=== PATIENT | male | born 1995 | race African-American/Black ===

== ENCOUNTER 2017-04-09 23:15 | Emergency (ER) | payer SELFPAY ==
[~2017-04-09 23:15] MED LIST: VENTAER INH
[2017-04-09 23:17] VITALS: BP 134/89; PULSE 64; RESP 16; TEMP 98.9; O2SAT 100
[2017-04-10] MEDS ORDERED: KALETRA200 PO ×2 (01:57→01:58)
[2017-04-10] MEDS ORDERED: LAMI1TAB7 PO (01:57)
[2017-04-10] MEDS ORDERED: ZIDO100C4 PO (01:57)
[2017-04-10] MEDS ORDERED: ZOFR4TAB PO (02:00)
== END 2017-04-10 00:34 | disposition left against medical advice (07) ==
LOC: NED 23:15
DX: T14.8 Other injury of unspecified body region (principal); W46.0XXA Contact with hypodermic needle, initial encounter
CPT/HCPCS: 99281

== ENCOUNTER 2017-04-09 23:47 | Emergency (ER) | payer MEDICAID, OTHER ==
[~2017-04-09] VITALS: Ht 182.9 cm; Wt 80.7 kg
[2017-04-10 00:08] VITALS: BP 118/79; PULSE 66; RESP 18; TEMP 98.2; O2SAT 100
[2017-04-10] MEDS ORDERED: TETANUS/DIPHTHERIA TOXOID ADULT 0.5 ML VIAL IM ONE (00:30)
[2017-04-10] MEDS ORDERED: SODIUM CHLORIDE 0.9% FLUSH 10 ML FLUSH IV FLUSH PRN (00:30)
[2017-04-10] MEDS ORDERED: LOPINAVIR/RITONAVIR 200 MG/50 MG TAB PO ONE (00:30)
[2017-04-10] MEDS ORDERED: ZIDOVUDINE 100 MG CAP PO ONE (00:30)
[2017-04-10 01:09] LABS: AUTOMATED NEUTROPHIL # 2.3 TH/MM3 (1.8-7.7); BASOPHIL % 0.7 % (0.0-2.0); EOSINOPHIL # 0.1 TH/MM3 (0-0.4); EOSINOPHIL % 2.7 % (0.0-4.0); HEMATOCRIT 42.5 % (39.0-51.0); HEMO FLAGS DIFF FINAL; LYMPH % 46.6 % (9.0-44.0); LYMPHOCYTE # 2.4 TH/MM3 (1.0-4.8); MEAN CELL VOLUME 85.7 FL (80.0-100.0); MEAN CORPUSCULAR HEMOGLOBIN 28.8 PG (27.0-34.0); MEAN CORPUSCULAR HGB CONC 33.6 % (32.0-36.0); MONO % 5.8 % (0.0-8.0); NEUT % 44.2 % (16.0-70.0); PLATELET COUNT 239 TH/MM3 (150-450); RED BLOOD COUNT 4.96 MIL/MM3 (4.50-5.90); RED CELL DISTRIBUTION WIDTH 13.1 % (11.6-17.2); WHITE BLOOD COUNT 5.1 TH/MM3 (4.0-11.0)
[2017-04-10 01:16] LABS: CHLORIDE 107 MEQ/L (98-107); POTASSIUM 3.7 MEQ/L (3.5-5.1); SODIUM (NA) 143 MEQ/L (136-145)
[2017-04-10 01:19] LABS: ANION GAP 6 MEQ/L (5-15); BICARBONATE 29.7 MEQ/L (21.0-32.0)
[2017-04-10 01:20] LABS: AMYLASE 63 U/L (25-115); BLOOD UREA NITROGEN 11 MG/DL (7-18)
--- NOTE | 2017-04-10 01:20 | PD ---
HPI Chief Complaint: Exposure to Blood/Body Fluids Time Seen by Provider: 00:09 Travel History International Travel<30 days: No Contact w/Intl Traveler<30days: No Traveled to known affect area: No History of Present Illness HPI Patient is a 21-year-old male presents to the emergency Department with right hand pain. Patient states he was at his job at [employer] where he works and was going to clean the bathroom and when he reached in to the trash can he was struck by a uncapped needle on a syringe with visible blood. Patient states is on his right index finger. States that he is unsure when the needle came from another of his coworkers claimed it. Patient is initially unsure if his hepatitis vaccination status however he called his mom states that he has not had it. Incident happened just prior to arrival. Otherwise he feels well, no complaints, denies any chest pain shortness breath abdominal pain nausea vomiting diarrhea. PFSH Past Medical History Medical History: Denies Significant Hx Developmental Delay: No Diminished Hearing: No Immunizations Current: Yes Tetanus Vaccination: < 5 Years Influenza Vaccination: No Past Surgical History Surgical History: No Previous Surgery Social History Alcohol Use: No Tobacco Use: No Substance Use: Yes (OCC MARIJUANA) Allergies-Medications (Allergen,Severity, Reaction): Coded Allergies: No Known Allergies (Verified , 04/10/17) Reported Meds & Prescriptions Reported Meds & Active Scripts Active Zofran (Ondansetron HCl) 4 Mg Tab 4 Mg PO Q6HR PRN Kaletra (Lopinavir/Ritonavir) 200-50 Mg Tab 2 Tab PO Q12HR Zidovudine 100 Mg Cap 300 Mg PO Q12HR 28 Days Lamivudine 150 Mg Tab 150 Mg PO BID 28 Days Ventolin Hfa (Albuterol Sulfate) 18 Gm Aero 2 Puff INH Q4H PRN * SHAKE WELL BEFORE USE * Review of Systems Except as stated in HPI: all other systems reviewed are Neg Physical Exam Narrative GENERAL: Well-developed well-nourished no apparent distress SKIN: There is a very small wound of the right finger however he does appear to have breech the dermis, no bleeding no abscess, full nontender range of motion. No signs of bacterial infection. HEAD: Atraumatic. Normocephalic. EYES: Pupils equal and round. No scleral icterus. No injection or drainage. ENT: No nasal bleeding or discharge. Mucous membranes pink and moist. NECK: Trachea midline. No JVD. CARDIOVASCULAR: Regular rate and rhythm. No murmur appreciated. RESPIRATORY: No accessory muscle use. Clear to auscultation. Breath sounds equal bilaterally. GASTROINTESTINAL: Abdomen soft, non-tender, nondistended. Hepatic and splenic margins not palpable. MUSCULOSKELETAL: No obvious deformities. No clubbing. No cyanosis. No edema. NEUROLOGICAL: Awake and alert. No obvious cranial nerve deficits. Motor grossly within normal limits. Normal speech. PSYCHIATRIC: Appropriate mood and affect; insight and judgment normal. Data Data Last Documented VS Vital Signs Date Time Temp Pulse Resp B/P Pulse Ox O2 Delivery O2 Flow Rate FiO2 04/10/17 03:50 76 20 110/74 100 04/10/17 00:08 98.2 Orders Tetanus/Diphtheria Tox Adult (Tetanus/Di (04/10/17 00:30) Complete Blood Count With Diff (04/10/17 00:23) Comprehensive Metabolic Panel (04/10/17 00:23) Iv Access Insert/Monitor (04/10/17 00:23) Oximetry (04/10/17 00:23) Sodium Chloride 0.9% Flush (Ns Flush) (04/10/17 00:30) Amylase (04/10/17 00:23) Lamivudine (Epivir) (04/10/17 00:30) Zidovudine (Retrovir) (04/10/17 00:30) Lopinavir-Ritonavir 200-50 Mg (Kaletra 2 (04/10/17 00:30) Hepatitis B Vaccine (04/10/17 00:47) Hepatitis B Vaccine Ped Inj (Recombivax (04/10/17 02:30) Labs Laboratory Tests Test 04/10/17 00:40 White Blood Count 5.1 TH/MM3 Red Blood Count 4.96 MIL/MM3 Hemoglobin 14.3 GM/DL Hematocrit 42.5 % Mean Corpuscular Volume 85.7 FL Mean Corpuscular Hemoglobin 28.8 PG Mean Corpuscular Hemoglobin 33.6 % Concent Red Cell Distribution Width 13.1 % Platelet Count 239 TH/MM3 Mean Platelet Volume 7.3 FL Neutrophils (%) (Auto) 44.2 % Lymphocytes (%) (Auto) 46.6 % Monocytes (%) (Auto) 5.8 % Eosinophils (%) (Auto) 2.7 % Basophils (%) (Auto) 0.7 % Neutrophils # (Auto) 2.3 TH/MM3 Lymphocytes # (Auto) 2.4 TH/MM3 Monocytes # (Auto) 0.3 TH/MM3 Eosinophils # (Auto) 0.1 TH/MM3 Basophils # (Auto) 0.0 TH/MM3 CBC Comment DIFF FINAL Differential Comment Sodium Level 143 MEQ/L Potassium Level 3.7 MEQ/L Chloride Level 107 MEQ/L Carbon Dioxide Level 29.7 MEQ/L Anion Gap 6 MEQ/L Blood Urea Nitrogen 11 MG/DL Creatinine 1.20 MG/DL Estimat Glomerular Filtration 94 ML/MIN Rate Random Glucose 85 MG/DL Calcium Level 9.0 MG/DL Total Bilirubin 1.3 MG/DL Aspartate Amino Transf 23 U/L (AST/SGOT) Alanine Aminotransferase 32 U/L (ALT/SGPT) Alkaline Phosphatase 56 U/L Total Protein 7.6 GM/DL Albumin 4.2 GM/DL Amylase Level 63 U/L MDM Medical Decision Making Medical Screen Exam Complete: Yes Emergency Medical Condition: Yes Differential Diagnosis Needle stick, body fluid exposure, potential HIV exposure, essential hepatitis B / hepatitis C exposures. Narrative Course Patient was roomed in the emergency department, further history demonstrates the patient has been treated by another physician for Chlamydia exposure recently. He's had a Rocephin shot this week. Think prophylactic antibiotics are not indicated. He does need a tetanus booster. The patient has not had a hepatitis B series is prudent to start one at this time. He was given the first injection here and recommended that he follow-up with the health department or primary care physician for the second 2. The subject of possible HIV exposure, the patient does have the needle and syringe with him, appears to be 1 cc insulin syringe with a what appears to be 27-gauge hollow needle attached. There is some notable blood at the end of the syringe. Unfortunately there is not a source to test, given that this needle was in the bathroom stall of the fast food restaurant I think it is very reasonable to consider that whoever was using it may have been using it for IV drug abuse. For that reason the index suspicion for HIV and hepatitis exposure remains high. Per protocol the patient will be offered prophylaxis and after discussion the risks benefits complications and alternatives of therapy he is agreeable. He was given a first dose on arrival to the emergency department of antiviral medicines. I discussed with him that these medicines do carry significant Mar with them and he needs to get in touch with his Workmen's Compensation is possible to discuss payment. He was urged to follow-up with a primary care physician the health department of the exam clinic at his earliest convenience preferably Wednesday. His baseline HIV status and hepatitis status was sent to the lab and results are pending at this time. However he is stable for discharge. Diagnosis Primary Impression: Needle stick injury Referrals: Jesus Renteria MD [facility] Additional Instructions: Call your primary care physician on Wednesday for an early appointment. Or you can follow-up with [facility]. Also recommend following up with health department. Call your boss and informed them of the injury immediately, call your workman's comp company to discussed that you will need the medicines for 4 weeks. Med/Other Pt SpecificInfo: Prescription(s) given Scripts Ondansetron (Zofran)4 Mg Tab4 Mg PO Q6HR PRN (NAUSEA OR VOMITING) #30 TAB Ref 0 Prov:Nilay Rice MD 04/10/17 Lopinavir-Ritonavir (Kaletra)200-50 Mg Tab2 Tab PO Q12HR #28 TAB Ref 0 Prov:Nilay Rice MD 04/10/17 Zidovudine 100 Mg [id number] Mg PO Q12HR 28 Days Ref 0 Prov:Nilay Rice MD 04/10/17 Lamivudine 150 Mg [id number] Mg PO BID 28 Days Ref 0 Prov:Nilay Rice MD 04/10/17 Disposition: 01 DISCHARGE HOME Condition: Stable Nilay Rice MD Apr 10, 2017 01:20
[2017-04-10 01:22] LABS: ALT (GPT) 32 U/L (9-52); AST (GOT) 23 U/L (15-39)
[2017-04-10 01:23] LABS: GLOMERULAR FILTRATION RATE 94 ML/MIN (>89)
[2017-04-10 01:24] LABS: TOTAL BILIRUBIN ADULT 1.3 MG/DL (0.2-1.0)
[2017-04-10 01:25] LABS: ALKALINE PHOSPHATASE 56 U/L (45-117)
[2017-04-10] MEDS ORDERED: LAMI1TAB7 PO (01:57)
[2017-04-10] MEDS ORDERED: KALETRA200 PO ×2 (01:57→01:58)
[2017-04-10] MEDS ORDERED: ZIDO100C4 PO (01:57)
[2017-04-10] MEDS ORDERED: ZOFR4TAB PO (02:00)
[2017-04-10] MEDS ORDERED: HEPATITIS B INFANT/ADOLESCENT VACCINE 5 MCG/0.5 ML VIAL IM ONE (02:30)
[2017-04-10 03:45] VITALS: BP 122/74; PULSE 72; RESP 20; O2SAT 99
[2017-04-10 03:50] VITALS: BP 110/74
[2017-04-12 12:31] LABS: HEPATITIS B SURFACE ANTIBODY 0.3 mIU/mL
== END 2017-04-10 03:52 | disposition home or self-care (01) ==
LOC: PHED 23:47
DX: Z77.21 Contact with and (suspected) exposure to potentially hazardous body fluids (principal); W46.0XXA Contact with hypodermic needle, initial encounter
CPT/HCPCS: 80053; 82150; 85025; 86317; 86703; 86803; 90471; 90714; 90744

== ENCOUNTER 2017-06-10 09:07 | Emergency (ER) | payer SELFPAY ==
[~2017-06-10] VITALS: Ht 185.4 cm; Wt 82.5 kg
[~2017-06-10 09:07] MED LIST changes: +KALETRA200 PO; +LAMI1TAB7 PO; +ZIDO100C4 PO; +ZOFR4TAB PO
[2017-06-10 09:08] VITALS: BP 129/78; PULSE 61; RESP 16; TEMP 98.6; O2SAT 100
--- NOTE | 2017-06-10 09:13 | PD ---
HPI . right ankle pain Chief Complaint: Injury Time Seen by Provider: 09:13 Travel History International Travel<30 days: No Contact w/Intl Traveler<30days: No Traveled to known affect area: No History of Present Illness HPI 21-year-old male with no significant past medical history here with complaints of right ankle and foot pain. Apparently patient was playing basketball yesterday and someone accidentally fell and landed on his foot. He has been unable to ambulate. He has also been unable to dorsiflex or plantarflex his right foot. He reports 10/10 pain, but has not tried any [id number] formulations. He is accompanied by his significant other. He has no other complaints. PFSH Past Medical History Developmental Delay: No Diminished Hearing: No Immunizations Current: Yes Social History Alcohol Use: No Tobacco Use: No Substance Use: Yes (OCC MARIJUANA) Allergies-Medications (Allergen,Severity, Reaction): Coded Allergies: No Known Allergies (Verified , 04/10/17) Reported Meds & Prescriptions Reported Meds & Active Scripts Active Ibuprofen 800 Mg Tab 800 Mg PO TID Zofran (Ondansetron HCl) 4 Mg Tab 4 Mg PO Q6HR PRN Kaletra (Lopinavir/Ritonavir) 200-50 Mg Tab 2 Tab PO Q12HR Zidovudine 100 Mg Cap 300 Mg PO Q12HR 28 Days Lamivudine 150 Mg Tab 150 Mg PO BID 28 Days Ventolin Hfa (Albuterol Sulfate) 18 Gm Aero 2 Puff INH Q4H PRN * SHAKE WELL BEFORE USE * Review of Systems General / Constitutional: No: Fever Eyes: No: Visual changes HENT: No: Headaches Cardiovascular: No: Chest Pain or Discomfort Respiratory: No: Shortness of Breath Gastrointestinal: No: Abdominal Pain Genitourinary: No: Dysuria Musculoskeletal: Positive: Pain (right ankle/foot) Skin: No Rash Neurologic: No: Weakness Psychiatric: No: Depression Endocrine: No: Polydipsia Hematologic/Lymphatic: No: Easy Bruising Physical Exam Narrative GENERAL: AAO x 3, no acute distress, Well-nourished, well-developed patient. SKIN: Warm and dry. No visible rashes or bruising. HEAD: Normocephalic and atraumatic. EYES: No scleral icterus. No injection or drainage. EOM intact, PERRLA ENT: No nasal drainage noted. Mucous membranes pink. Airway patent. NECK: Supple, trachea midline. No JVD. CARDIOVASCULAR: Regular rate and rhythm without murmurs, gallops, or rubs. RESPIRATORY: Breath sounds equal bilaterally. No accessory muscle use. No rhonchi or rales. GASTROINTESTINAL: Abdomen soft, non-tender, nondistended. EXTREMITIES: moderate edema to right lateral ankle/lateral malleolus, lateral foot. unable to dorsiflex and plantarflex, pedal pulses of left foot normal BACK: Nontender without obvious deformity. No CVA tenderness. NEURO: CN II-12 intact, client consultant strength normal b/l, UE and LE 5/5, no focal deficits PSYCH: AAO x 3, normal affect. Data Data Last Documented VS Vital Signs Date Time Temp Pulse Resp B/P Pulse Ox O2 Delivery O2 Flow Rate FiO2 06/10/17 09:08 98.6 61 16 129/78 100 Room Air Orders Ankle, Complete ([id number]) (06/10/17 09:16) Foot, Complete ([id number]) (06/10/17 09:16) Ibuprofen (Motrin) (06/10/17 09:30) Splinting (06/10/17 ) Crutches (06/10/17 10:11) MDM Medical Decision Making Medical Screen Exam Complete: Yes Emergency Medical Condition: Yes Medical Record Reviewed: Yes Differential Diagnosis Ankle fracture, ankle sprain, foot fracture, foot sprain, ligamentous injury of the ankle Narrative Course 21-year-old male here with complaints of acute right ankle pain. On examination appears patient could possibly have an acute fracture this right ankle. X-rays were done. Ibuprofen helped with his pain. Last Impressions Foot X-Ray 06/10/17915 Signed Impressions: Service Date/Time: June 09:42 - CONCLUSION: 1. No acute fracture or joint dislocation involving the foot. 2. Soft tissue swelling at the ankle. Silas So MD Ankle X-Ray 06/10/17915 Signed Impressions: Service Date/Time: June 09:38 - CONCLUSION: 1. Diffuse prominent soft tissue swelling around the ankle. 2. Small probable cortical avulsion fracture involving the distal fibula. Silas So MD Case discussed with Dr. Walker. We will splint patient and have him use crutches. He can f/u with outpatient ortho. I have discussed this with him. He attends school in [place] at [employer] [employer] and will be checking up there for ortho f/u as well. We have stressed outpatient f/u in 1 week. Ibuprofen for pain. HOSEA. Patient verbalized understanding of instructions, questions were answered, and thanked me for their care. I advised them if their condition worsens, please return to the nearest emergency room for further care. Diagnosis Primary Impression: Fibula fracture Qualified Code: S82.831A - Closed fracture of distal end of right fibula, unspecified fracture morphology, initial encounter Referrals: Orthopedist Patient Instructions: General Instructions Additional Instructions: Please follow-up with orthopedics for further recommendation on this ankle injury. Use crutches to keep weight off of this leg. Please return to emergency department if your symptoms return or worsen. Follow up with your primary care provider. Take medications as prescribed. Med/Other Pt SpecificInfo: Prescription(s) given Scripts Ibuprofen 800 Mg [id number] Mg PO TID #21 TAB Prov:Kayli Walker MD 06/10/17 Disposition: 01 DISCHARGE HOME Condition: Stable Tequila Knight Jun 10, 2017 09:13
[2017-06-10] MEDS ORDERED: IBUPROFEN 800 MG TAB PO ONE (09:30)
--- NOTE | 2017-06-10 09:46 | RADRPT ---
EXAM DATE/TIME: 06/10/2017 09:38 [facility] COMPARISON: No previous studies available for comparison. INDICATIONS : Injured right ankle playing basketball. Pain through right ankle joint with swelling. MEDICAL HISTORY : None. SURGICAL HISTORY : None. ENCOUNTER: Initial ACUITY: 1 day PAIN SCORE: 10/10 LOCATION: Right Ankle FINDINGS: Three view exam was performed of the right ankle. There is diffuse soft tissue swelling around the en tire ankle. There is a small piece of cortical bone just inferior to the fibula. This may represent a small nondisplaced avulsion fracture. Otherwise, the bony structures are grossly intact. No joint di slocation at the mortise joint. The rest of the bones are grossly intact.. CONCLUSION: 1. Diffuse prominent soft tissue swelling around the ankle. 2. Small probable cortical avulsion fracture involving the distal fibula. Silas So MD on June 10, 2017 at 9:43 Board Certified Radiologist. This report was verified electronically.
--- NOTE | 2017-06-10 09:47 | RADRPT ---
EXAM DATE/TIME: 06/10/2017 09:42 [facility] COMPARISON: ANKLE RIGHT COMPLETE ([id number]), June 10, 2017, 9:38. INDICATIONS : Injured foot playing basketball. Pain on lateral and medial sides of metatarsals with swelling. MEDICAL HISTORY : None. SURGICAL HISTORY : None. ENCOUNTER: Initial ACUITY: 1 day PAIN SCORE: 10/10 LOCATION: Right Foot FINDINGS: Three view examination of the right foot demonstrates no dislocation, or fracture. There is soft ti ssue swelling of the ankle. The tarsal bones appear intact. The interphalangeal and metatarsophalan geal joints are intact. The calcaneus is intact. Bony mineralization is normal. CONCLUSION: 1. No acute fracture or joint dislocation involving the foot. 2. Soft tissue swelling at the ankle. Silas So MD on June 10, 2017 at 9:45 Board Certified Radiologist. This report was verified electronically.
[2017-06-10] MEDS ORDERED: IBUP800T23 PO (10:16)
== END 2017-06-10 10:43 | disposition home or self-care (01) ==
LOC: NEPK 09:07
DX: S82.831A Other fracture of upper and lower end of right fibula, initial encounter for closed fracture (principal); W50.0XXA Accidental hit or strike by another person, initial encounter; Y93.67 Activity, basketball
CPT/HCPCS: 29515; 73610; 73630; 99283; E0113

== ENCOUNTER 2017-06-16 10:28 | Emergency (ER) | payer SELFPAY ==
[~2017-06-16] VITALS: Ht 185.4 cm; Wt 82.5 kg
[~2017-06-16 10:28] MED LIST changes: +IBUP800T23 PO
[2017-06-16 10:29] VITALS: BP 123/74; PULSE 76; RESP 16; TEMP 98.7; O2SAT 98
--- NOTE | 2017-06-16 11:05 | PD ---
HPI Chief Complaint: Injury Time Seen by Provider: 11:03 Travel History International Travel<30 days: No Contact w/Intl Traveler<30days: No Traveled to known affect area: No History of Present Illness HPI 21-year-old male presents to the emergency department requesting follow-up for his right fibula fracture that he was seen here for on June 10. He has tried following up outpatient and has been unable to do so. He says he doesn't know if he has insurance or not. Patient denies paresthesias, loss of sensation to the affected extremity. He has a temporary splint in place. He has his crutches for support. Denies fever, vomiting. Has no other medical complaints. Symptoms are mild in severity. No known allergies. No other modifying factors or associated signs and symptoms. PFSH Past Medical History Developmental Delay: No Diminished Hearing: No Immunizations Current: Yes Social History Alcohol Use: No Tobacco Use: No Substance Use: Yes (OCC MARIJUANA) Allergies-Medications (Allergen,Severity, Reaction): Coded Allergies: No Known Allergies (Verified , 06/10/17) Reported Meds & Prescriptions Reported Meds & Active Scripts Active Ibuprofen 800 Mg Tab 800 Mg PO TID Zofran (Ondansetron HCl) 4 Mg Tab 4 Mg PO Q6HR PRN Kaletra (Lopinavir/Ritonavir) 200-50 Mg Tab 2 Tab PO Q12HR Zidovudine 100 Mg Cap 300 Mg PO Q12HR 28 Days Lamivudine 150 Mg Tab 150 Mg PO BID 28 Days Ventolin Hfa (Albuterol Sulfate) 18 Gm Aero 2 Puff INH Q4H PRN * SHAKE WELL BEFORE USE * Review of Systems Except as stated in HPI: all other systems reviewed are Neg Physical Exam Narrative GENERAL: Well-nourished, well-developed male patient, in no acute distress SKIN: Warm and dry. HEAD: Atraumatic. Normocephalic. EYES: Pupils equal and round. No scleral icterus. No injection or drainage. ENT: Mucosa pink and moist. Airway patent. NECK: Trachea midline. CARDIOVASCULAR: Regular rate. RESPIRATORY: No accessory muscle use. GASTROINTESTINAL: Flat. MUSCULOSKELETAL: Posterior short leg splint in place to right lower extremity; toes are pink and warm and with good cap refill and sensory intact. No obvious deformities. No clubbing. No cyanosis. No edema. NEUROLOGICAL: Awake and alert. Oriented 3. No obvious cranial nerve deficits. Motor grossly within normal limits. Normal speech. PSYCHIATRIC: Appropriate mood and affect; insight and judgment normal. Data Data Last Documented VS Vital Signs Date Time Temp Pulse Resp B/P Pulse Ox O2 Delivery O2 Flow Rate FiO2 06/16/17 10:29 98.7 76 16 123/74 98 Room Air Orders Mandatory Outpatient Referral (06/16/17 11:06) MDM Medical Decision Making Medical Screen Exam Complete: Yes Emergency Medical Condition: Yes Medical Record Reviewed: Yes Differential Diagnosis Fibula fracture, follow-up, medical clearance Narrative Course 21-year-old male needing follow-up for right fibula fracture. He was seen here on June 10. He does not know if he has insurance. He thinks he has Medicaid cost of share. I entered a mandatory outpatient referral. Instructed patient to follow up with orthopedic of choice if he does not qualify for mandatory outpatient referral. Dr. Wasserman's information was provided for follow-up. Instructed patient to follow up with primary care provider. Patient verbalizes understanding and agreement with treatment plan. Patient is medically cleared and stable for discharge. Discussed reasons to return to the emergency department. Patient agrees with treatment plan. The patients vital signs are stable and the patient is stable for outpatient follow-up and treatment. Patient discharged home, stable and in no acute distress. Diagnosis Primary Impression: Fibula fracture Qualified Code: S82.831D - Closed fracture of distal end of right fibula with routine healing, unspecified fracture morphology, subsequent encounter Referrals: Dex Renner Jr., MD [facility] Primary Care Physician Patient Instructions: General Instructions Additional Instructions: Tylenol or ibuprofen as directed and as needed for pain and inflammation Rest, ice, compress, and elevate extremity to decrease pain and inflammation Ankle Brace for support Splint for support; do not remove splint until cleared by orthopedic Crutches for support Avoid aggravating activity; increase activity as tolerated Follow-up with primary care provider Follow-up with orthopedics; Return to the emergency department immediately with worsening of symptoms Med/Other Pt SpecificInfo: No Change to Meds, No Meds Exist/No RX given Disposition: 01 DISCHARGE HOME Condition: Stable Candy Marroquin Jun 16, 2017 11:05
== END 2017-06-16 11:42 | disposition home or self-care (01) ==
LOC: NEPK 10:28
DX: S82.831D Other fracture of upper and lower end of right fibula, subsequent encounter for closed fracture with routine healing (principal); X58.XXXD Exposure to other specified factors, subsequent encounter
CPT/HCPCS: 99281